=== PATIENT | female | born 1950 | race Caucasian/White ===

== ENCOUNTER 2018-12-22 08:38 | Outpatient (CLI) | payer MEDICARE, OTHER ==
--- NOTE | 2018-12-22 12:09 | CT ---
CT CHEST HIGH RESOLUTION NONCONTRAST: COMPARISON: No prior comparison. HISTORY: Cough, short of breath, 67-year-old female. FINDINGS: Utilizing supine and prone imaging, there are no significant abnormal areas of interstitial septal th ickening or persistent areas of subpleural interstitial ground-glass opacification. Mild curvilinear density of the posteromedial left lower lobe may be on the basis of subsegmental atelectasis or mild scar. There is no pleural effusion. Incidental note of osseous degenerative change. IMPRESSION: No significant interstitial lung disease is demonstrated. POS: OFF
== END 2018-12-22 08:39 | disposition home or self-care (01) ==
LOC: CP 08:38
PROVIDERS: ATTEND Internal Medicine Pulmonary Disease
DX: R05 Cough (principal); R06.02 Shortness of breath
CPT/HCPCS: 71250; 94060; 94727; 94729

== ENCOUNTER 2020-05-21 12:45 | Outpatient (CLI) | payer MEDICARE, OTHER ==
--- NOTE | 2020-05-21 13:56 | RAD ---
PA AND LATERAL CHEST: 05/21/20 HISTORY: Dyspnea. Heart size is slightly enlarged with atherosclerotic changes of the aorta. The lungs are clear of any infiltrative process. Some mild chronic interstitial changes are seen. IMPRESSION: Cardiomegaly with mild chronic lung change. POS: BEBETO
== END 2020-05-21 12:46 | disposition home or self-care (01) ==
LOC: BICRAD 12:45
PROVIDERS: ATTEND Internal Medicine Pulmonary Disease
DX: R06.00 Dyspnea, unspecified (principal); I51.7 Cardiomegaly
CPT/HCPCS: 71046

== ENCOUNTER 2021-06-09 14:22 | Outpatient (CLI) | payer MEDICARE, OTHER | END 2021-06-09 14:23 | disposition home or self-care (01) | LOC: RAD 14:22 | PROVIDERS: ATTEND Internal Medicine Critical Care Medicine | DX: R06.00 Dyspnea, unspecified (principal) | CPT/HCPCS: 71046 ==

== ENCOUNTER 2022-06-09 09:09 | Outpatient (CLI) | payer MEDICARE, OTHER | END 2022-06-09 09:10 | disposition home or self-care (01) | LOC: RAD 09:09 | PROVIDERS: ATTEND Internal Medicine Critical Care Medicine | DX: R06.00 Dyspnea, unspecified (principal); I51.7 Cardiomegaly; J98.4 Other disorders of lung | CPT/HCPCS: 71046 ==